=== PATIENT | male | born 1950 | race Caucasian/White ===

== ENCOUNTER 2016-11-30 20:19 | Emergency (ER) | payer OTHER, MEDICARE ==
[2016-11-30] MEDS ORDERED: ACETAMINOPHEN 500 MG TAB PO ONE (20:35)
[2016-11-30] MEDS ORDERED: NS 1,000 ML IV ONE (20:54)
[2016-11-30 21:13] LABS: % IMMATURE GRANULYOCYTES 0.3 % (0.0-1.1); ABSOLUTE IMMATURE GRANULOCYTES 0.02 10^3/uL (0.00-0.10); ADD DIFF? NO; ADD MORPH? NO; ADD SCAN? NO; ATYPICAL LYMPHOCYTE FLAG 0 (0-99); FRAGMENT RBC FLAG 0 (0-99); HEMATOCRIT 46.2 % (40.0-51.0); HEMOGLOBIN 16.2 g/dL (13.7-17.5); LEFT SHIFT FLG 0 (0-99); LIPEMIA HEMOLYSIS FLAG 90 (0-99); MEAN CELL HEMOGLOBIN 32.7 pg (27.9-34.1); MEAN CELL HEMOGLOBIN CONCENTR. 35.1 g/dL (32.4-36.7); MEAN CELL VOLUME 93.1 fL (81.5-99.8); MEAN PLATELET VOLUME 9.8 fL (8.7-11.7); PLATELET CLUMPS FLAG 0 (0-99); PLATELET COUNT 145 10^3/uL (150-400); RED BLOOD CELL COUNT 4.96 10^6/uL (4.40-6.38); RED CELL DISTRIBUTION WIDTH 13.2 % (11.5-15.2)
[2016-11-30 21:27] VITALS: RESP 16
[2016-11-30 21:28] LABS: INR 1.31 (0.83-1.16); PROTIME(PATIENT) 16.3 SEC (12.0-15.0)
[2016-11-30 21:29] LABS: APTT 33.7 SEC (23.0-38.0)
[2016-11-30 21:39] LABS: ALANINE AMINOTRANSFERASE 45 IU/L (21-72); ALBUMIN 3.9 g/dL (3.5-5.0); ALKALINE PHOSPHATASE 54 IU/L (38-126); ANION GAP 13 mEq/L (8-16); ASPARTATE AMINOTRANSFERASE 41 IU/L (17-59); BILIRUBIN,TOTAL 2.4 mg/dL (0.1-1.4); BILIRUBIN-CONJUGATED 0.3 mg/dL (0.0-0.5); BILIRUBIN-UNCONJUGATED 2.1 mg/dL (0.0-1.1); CARBON DIOXIDE 22 mEq/l (22-31); CHLORIDE 100 mEq/L (97-110); CREATININE 1.2 mg/dL (0.7-1.3); GLOMERULAR FILTRATION RATE > 60; GLUCOSE 110 mg/dL (70-100); POTASSIUM 3.9 mEq/L (3.5-5.2); SODIUM 135 mEq/L (134-144); TOTAL PROTEIN 6.9 g/dL (6.3-8.2)
--- NOTE | 2016-11-30 22:25 | EDPHY ---
H & P Stated Complaint: Fever, Cough, VO Time Seen by Provider: 11/30/16 22:00 HPI/ROS: HPI The patient presents with fever for the last 3 days getting progressively higher to the point today that it was 103 F. This is associated with diffuse myalgias which she feels mostly in his upper body. He has been taking ibuprofen with some improvement in his symptoms. He feels general malaise has and has dizziness upon sitting up. He has been able to tolerate fluids. He denies any cough, chest pain. He does have mild shortness of breath which she has attributed to the altitude. He does not have any abdominal pain, nausea or vomiting. He is visiting from [place] and drove here. Of note a few months ago he had a similar presentation while visiting [place] with fever for a few days with a negative workup. He does say that he had cold-type symptoms a few weeks ago.. REVIEW OF SYSTEMS Constitutional: No fever, no chills. Eyes: No discharge. ENT: No sore throat. Cardiovascular: No chest pain, no palpitations. Respiratory: No cough, no shortness of breath. Gastrointestinal: No abdominal pain, no vomiting. Genitourinary: No hematuria. Musculoskeletal: No back pain. Skin: No rashes. Neurological: No headache. PMHx: Hypertension, atrial fibrillation on Pradaxa, basal cell carcinoma, history of neuropathy Soc Hx: Visiting from [place] PHYSICAL General Appearance: Alert, no distress Eyes: Pupils equal and round no pallor or injection ENT, Mouth: Mucous membranes moist Respiratory: There are no retractions, lungs are clear to auscultation Cardiovascular: Regular rate and rhythm Gastrointestinal: Abdomen is soft and non-tender, no masses, bowel sounds normal Neurological: A&O, moves all extremities Skin: Warm and dry, no rashes Musculoskeletal: Neck is supple non tender Extremities: symmetrical, full range of motion Psychiatric: Patient is oriented X 3, there is no agitation Source: Patient Exam Limitations: No limitations - Personal History Current Tetanus Diphtheria and Acellular Pertussis (TDAP): Yes - Medical/Surgical History Hx Asthma: No Hx Chronic Respiratory Disease: No Hx Diabetes: No Hx Cardiac Disease: Yes Hx Renal Disease: No Hx Cirrhosis: No Hx Alcoholism: No Hx HIV/AIDS: No Hx Splenectomy or Spleen Trauma: No Other PMH: PNA, Basil Cell Carcinoma, High Cholesterol - Social History Smoking Status: Former smoker Constitutional: Initial Vital Signs Temperature (C) 39.5 C H 11/30/16 20:29 Heart Rate 84 11/30/16 20:29 Respiratory Rate 18 11/30/16 20:29 Blood Pressure 142/95 H 11/30/16 20:29 O2 Sat (%) 92 11/30/16 20:29 O2 Delivery Mode Room Air Allergies/Adverse Reactions: No Known Allergies Allergy (Unverified 11/30/16 20:27) Home Medications: Medication Instructions Recorded Atorvastatin Calcium [Lipitor 20 20 mg PO DAILY 11/30/16 mg (*)] Cholecalciferol Vit D3 [Vitamin D3 1,000 units PO DAILY 11/30/16 (*)] Dabigatran Etexilate Mesyl 150 mg PO DAILY 11/30/16 [Pradaxa 150 MG (*)] Esomeprazole Magnesium [Nexium 20 mg PO DAILY 11/30/16 24Hr] Ferrous Sulfate [Iron] 325 mg PO DAILY 11/30/16 Ibuprofen [Motrin (*)] 400 mg PO Q4H PRN 11/30/16 Multivitamins [Multivitamin (*)] 1 each PO DAILY 11/30/16 Nebivolol HCl [Bystolic 5 mg (*)] 5 mg PO DAILY 11/30/16 Medical Decision Making - Diagnostics Imaging Results: Imaging Impressions Chest X-Ray 11/30/16 20:55 Impression: Normal. Chest CT 11/30/16 23:04 Impression: No pulmonary emboli. Imaging: Discussed imaging studies w/ calliope player Radiologist, I viewed and interpreted images myself Differential Diagnosis: This is a 66-year-old male with hypertension and atrial fibrillation who presents with progressive fever with myalgias and malaise. No other symptoms. Differential diagnosis includes sepsis, influenza, pneumonia, urinary tract infection. In the emergency department, patient was given 2 L of IV fluid for his fever and presumed volume depletion. His fever was treated with antipyretics. Labs were checked and were relatively unremarkable except for elevated total bilirubin which I attribute to dehydration verses show bears. D-dimer was also elevated and because of this CT scan of the chest was performed and was unremarkable. He continued to feel well and would like to be discharged. His fever has defervesced. The cause of his fever is unclear, though he does not appear septic. Blood cultures have been sent. He is visiting from out of town I have instructed him that he needs to follow up with his primary care doctor when he returns home is a 2nd episode of fever with unclear cause in the last several months. - Data Points Laboratory Results: Laboratory Results 11/30/16 21:00 11/30/16 21:00 11/30/16 11/30/16 11/30/16 22:35 21:00 21:00 WBC 7.32 10^3/uL 10^3/uL (3.80-9.50) RBC 4.96 10^6/uL 10^6/uL (4.40-6.38) Hgb 16.2 g/dL g/dL (13.7-17.5) Hct 46.2 % % (40.0-51.0) MCV 93.1 fL fL (81.5-99.8) MCH 32.7 pg pg (27.9-34.1) MCHC 35.1 g/dL g/dL (32.4-36.7) RDW 13.2 % % (11.5-15.2) Plt Count 145 10^3/uL L 10^3/uL (150-400) MPV 9.8 fL fL (8.7-11.7) Neut % (Auto) 82.3 % H % (39.3-74.2) Lymph % (Auto) 7.9 % L % (15.0-45.0) [place] % (Auto) 9.0 % % (4.5-13.0) Eos % (Auto) 0.1 % L % (0.6-7.6) Baso % (Auto) 0.4 % % (0.3-1.7) Nucleat RBC Rel Count 0.0 % % (0.0-0.2) Absolute Neuts (auto) 6.02 10^3/uL 10^3/uL (1.70-6.50) Absolute Lymphs (auto) 0.58 10^3/uL L 10^3/uL (1.00-3.00) Absolute Monos (auto) 0.66 10^3/uL 10^3/uL (0.30-0.80) Absolute Eos (auto) 0.01 10^3/uL L 10^3/uL (0.03-0.40) Absolute Basos (auto) 0.03 10^3/uL 10^3/uL (0.02-0.10) Absolute Nucleated RBC 0.00 10^3/uL 10^3/uL (0-0.01) Immature Gran % 0.3 % % (0.0-1.1) Immature Gran # 0.02 10^3/uL 10^3/uL (0.00-0.10) PT INR APTT D-Dimer VBG Lactic Acid Sodium Potassium Chloride Carbon Dioxide Anion Gap BUN Creatinine Estimated GFR Glucose Calcium Total Bilirubin Conjugated Bilirubin Unconjugated Bilirubin AST ALT Alkaline Phosphatase Troponin I < 0.012 ng/mL ng/mL (0.000-0.034) Total Protein Albumin Urine Color YELLOW Urine Appearance CLEAR Urine pH 7.0 (5.0-7.5) Ur Specific [place] 1.017 (1.002-1.030) Urine Protein 2+ H (NEGATIVE) Urine Ketones TRACE H (NEGATIVE) Urine Blood NEGATIVE (NEGATIVE) Urine Nitrate NEGATIVE (NEGATIVE) Urine Bilirubin NEGATIVE (NEGATIVE) Urine Urobilinogen NEGATIVE EU EU (0.2-1.0) Ur Leukocyte Esterase NEGATIVE (NEGATIVE) Urine RBC 5-10 /hpf H /hpf (0-3) Urine WBC 1-3 /hpf /hpf (0-3) Ur Epithelial Cells NONE SEEN /lpf /lpf (NONE-1+) Urine Mucus TRACE /lpf /lpf (NONE-1+) Urine Glucose NEGATIVE (NEGATIVE) Influenza A & B (PCR) 11/30/16 11/30/16 11/30/16 21:00 21:00 21:00 WBC RBC Hgb Hct MCV MCH MCHC RDW Plt Count MPV Neut % (Auto) Lymph % (Auto) [place] % (Auto) Eos % (Auto) Baso % (Auto) Nucleat RBC Rel Count Absolute Neuts (auto) Absolute Lymphs (auto) Absolute Monos (auto) Absolute Eos (auto) Absolute Basos (auto) Absolute Nucleated RBC Immature Gran % Immature Gran # PT 16.3 SEC H SEC (12.0-15.0) INR 1.31 H (0.83-1.16) APTT 33.7 SEC SEC (23.0-38.0) D-Dimer 1.18 ug/mLFEU H ug/mLFEU (0.00-0.50) VBG Lactic Acid 1.4 mmol/L mmol/L (0.7-2.1) Sodium 135 mEq/L mEq/L (134-144) Potassium 3.9 mEq/L mEq/L (3.5-5.2) Chloride 100 mEq/L mEq/L (97-110) Carbon Dioxide 22 mEq/l mEq/l (22-31) Anion Gap 13 mEq/L mEq/L (8-16) BUN 16 mg/dL mg/dL (7-23) Creatinine 1.2 mg/dL mg/dL (0.7-1.3) Estimated GFR > 60 Glucose 110 mg/dL H mg/dL (70-100) Calcium 9.0 mg/dL mg/dL (8.5-10.4) Total Bilirubin 2.4 mg/dL H mg/dL (0.1-1.4) Conjugated Bilirubin 0.3 mg/dL mg/dL (0.0-0.5) Unconjugated Bilirubin 2.1 mg/dL H mg/dL (0.0-1.1) AST 41 IU/L IU/L (17-59) ALT 45 IU/L IU/L (21-72) Alkaline Phosphatase 54 IU/L IU/L (38-126) Troponin I Total Protein 6.9 g/dL g/dL (6.3-8.2) Albumin 3.9 g/dL g/dL (3.5-5.0) Urine Color Urine Appearance Urine pH Ur Specific [place] Urine Protein Urine Ketones Urine Blood Urine Nitrate Urine Bilirubin Urine Urobilinogen Ur Leukocyte Esterase Urine RBC Urine WBC Ur Epithelial Cells Urine Mucus Urine Glucose Influenza A & B (PCR) 11/30/16 20:55 WBC RBC Hgb Hct MCV MCH MCHC RDW Plt Count MPV Neut % (Auto) Lymph % (Auto) [place] % (Auto) Eos % (Auto) Baso % (Auto) Nucleat RBC Rel Count Absolute Neuts (auto) Absolute Lymphs (auto) Absolute Monos (auto) Absolute Eos (auto) Absolute Basos (auto) Absolute Nucleated RBC Immature Gran % Immature Gran # PT INR APTT D-Dimer VBG Lactic Acid Sodium Potassium Chloride Carbon Dioxide Anion Gap BUN Creatinine Estimated GFR Glucose Calcium Total Bilirubin Conjugated Bilirubin Unconjugated Bilirubin AST ALT Alkaline Phosphatase Troponin I Total Protein Albumin Urine Color Urine Appearance Urine pH Ur Specific [place] Urine Protein Urine Ketones Urine Blood Urine Nitrate Urine Bilirubin Urine Urobilinogen Ur Leukocyte Esterase Urine RBC Urine WBC Ur Epithelial Cells Urine Mucus Urine Glucose Influenza A & B (PCR) NEGATIVE FOR FLU (NEGATIVE) Medications Given: Discontinued Medications Acetaminophen (Tylenol) 1,000 mg PO EDNOW ONE Stop: 11/30/16 20:36 Last Admin: 11/30/16 20:40 Dose: 1,000 mg Sodium Chloride (Ns) 1,000 mls @ 0 mls/hr IV ONCE ONE; Wide Open PRN Reason: Protocol Stop: 11/30/16 20:55 Last Admin: 11/30/16 21:08 Dose: 1,000 mls Departure - Departure Disposition: Home, Routine, Self-Care Clinical Impression: Fever Qualifiers: Fever type: unspecified Qualified Code(s): R50.9 - Fever, unspecified Condition: Good Instructions: Fever in Adults (ED) Additional Instructions: Please return to the emergency room if your worse in any way. Referrals: BINA,ENAK [Other] - As per Instructions
[2016-11-30 22:48] LABS: COLOR YELLOW; LEUKOCYTE ESTERASE,URINE NEGATIVE (NEGATIVE); NITRITE,URINE NEGATIVE (NEGATIVE)
[2016-11-30 22:50] LABS: MUCUS TRACE /lpf (NONE-1+)
[2016-11-30] MEDS ORDERED: IOPAMIDOL (ISOVUE 370) 100 ML BTL IV ONE (23:11)
[2016-12-01 00:31] VITALS: BP 143/85; PULSE 82; TEMP 99.5; O2SAT 93
== END 2016-12-01 00:31 | disposition home or self-care (01) ==
DX: R50.9 Fever, unspecified (principal); I10 Essential (primary) hypertension; E86.9 Volume depletion, unspecified; Z87.891 Personal history of nicotine dependence
CPT/HCPCS: 71020; 71260; 96360; 99285; Q9967

== ENCOUNTER 2016-12-01 12:05 | Emergency (ER) | payer OTHER, MEDICARE ==
[2016-12-01 12:21] VITALS: TEMP 101.1
--- NOTE | 2016-12-01 13:45 | EDPHY ---
H & P Time Seen by Provider: 12/01/16 13:44 HPI/ROS: Chief complaint. Fever HPI. 66-year-old male presents with fever for the past 3-4 days. He is visiting from [place]. He was seen in the emergency department yesterday with normal workup. He had a normal chest x-ray, CT, urinalysis. He has no upper respiratory symptoms or cough. He says no abdominal pain vomiting or diarrhea but has slight muscle soreness to his abdomen but he says this is part of the rest of his muscle soreness with fever. No urinary symptoms. He had similar symptoms 2 months ago in [place] and after 2 visits to the emergency department there he was treated with what he says was a general antibiotic and symptoms went away. He had tick bites to [place] 2 months ago just before the onset of his episode of fever. Apparently he had negative Lyme and Engelhard spotted fever test at that time. He does have eczema and has a new rash on the dorsum of his right wrist but otherwise it is typical and does not seem to be infected. ROS Constitutional. Fever Eyes. no problems with vision ENT. no sore throat, no nasal drainage Cardiovascular. no chest pain Respiratory. no shortness of breath, no cough Abdominal. no abdominal pain, no nausea/vomiting, no diarrhea . no problems urinating MS. myalgias Skin. no rash Lymph. no swollen glands Neuro. no headache, no dizziness, no difficulty walking or with speech Past Medical/Surgical History: Past medical history is significant for pneumonia, basal cell carcinoma cover hypertension, AFib on Pradaxa, dyslipidemia Social History: , nonsmoker, no alcohol Smoking Status: Former smoker Physical Exam: General Appearance: Alert pleasant well-developed male mild distress vital signs are stable other than temp 38.4degrees Eyes: Pupils equal and round no pallor or injection. ENT, tympanic membranes are normal. Pharynx without injection Respiratory: There are no retractions, lungs are clear to auscultation. Cardiovascular: Regular rate and rhythm. Gastrointestinal: Abdomen is soft and nontender, no masses, bowel sounds normal. Apparent muscle wall tenderness. No focal areas of tenderness Neurological: Awake and alert, sensory and motor exams grossly normal. Skin: Warm and dry, no rashes. Eczema lesion on the dorsum of the right wrist without evidence for infection Musculoskeletal: Neck is supple nontender. Extremities symmetrical, full range of motion. Psychiatric: Patient is oriented X 3, there is no agitation. Constitutional: Initial Vital Signs Temperature (C) 38.4 C H 12/01/16 12:18 Heart Rate 85 12/01/16 12:18 Respiratory Rate 18 12/01/16 12:18 Blood Pressure 151/81 H 12/01/16 12:18 O2 Sat (%) 92 12/01/16 12:18 O2 Delivery Mode Room Air Allergies/Adverse Reactions: No Known Allergies Allergy (Unverified 11/30/16 20:27) Home Medications: Medication Instructions Recorded Atorvastatin Calcium [Lipitor 20 20 mg PO DAILY 11/30/16 mg (*)] Cholecalciferol Vit D3 [Vitamin D3 1,000 units PO DAILY 11/30/16 (*)] Dabigatran Etexilate Mesyl 150 mg PO DAILY 11/30/16 [Pradaxa 150 MG (*)] Esomeprazole Magnesium [Nexium 20 mg PO DAILY 11/30/16 24Hr] Ferrous Sulfate [Iron] 325 mg PO DAILY 11/30/16 Ibuprofen [Motrin (*)] 400 mg PO Q4H PRN 11/30/16 Multivitamins [Multivitamin (*)] 1 each PO DAILY 11/30/16 Nebivolol HCl [Bystolic 5 mg (*)] 5 mg PO DAILY 11/30/16 Doxycycline Hyclate 100 mg PO BID #14 tab 12/01/16 Medical Decision Making Procedures: Tylenol orally ED Course/Re-evaluation: I consulted and discussed the case with Dr. Bae, infectious disease, who recommends repeat CBC and West Nile virus cultures. She will see the patient in follow-up I discussed treatment plan with the patient. He expresses understanding and Differential Diagnosis: The patient does not appear ill or septic. Likely this is viral infection. Blood cultures so far are no growth. I considered Lyme disease other tick- borne illnesses, West Nile virus. - Data Points Medications Given: Discontinued Medications Acetaminophen (Tylenol) 1,000 mg PO EDNOW ONE Stop: 12/01/16 14:03 Last Admin: 12/01/16 14:15 Dose: 1,000 mg Departure - Departure Disposition: Home, Routine, Self-Care Clinical Impression: Fever Qualifiers: Fever type: unspecified Qualified Code(s): R50.9 - Fever, unspecified Condition: Good Instructions: Fever in Adults (ED) Additional Instructions: May use Tylenol 650-1000 mg every 4-6 hours, ibuprofen 600 mg every 6 hours as needed for fever. May alternate these medications every 3 hours. A return for worsening symptoms. Follow up with on Saturday here in [place] or your regular physician upon return to [place] Your iron supplement may may interfere with the absorption of the antibiotic. Please stop taking the iron supplement while taking the antibiotic Referrals: BOTI,UNKNOWN [Other] - As per Instructions Duke Bae MD [Medical Doctor] - As per Instructions Prescriptions: Doxycycline Hyclate 100 mg PO BID #14 tab
[2016-12-01] MEDS ORDERED: ACETAMINOPHEN 500 MG TAB PO ONE (14:02)
[2016-12-01 15:01] LABS: % IMMATURE GRANULYOCYTES 0.3 % (0.0-1.1); ABSOLUTE IMMATURE GRANULOCYTES 0.02 10^3/uL (0.00-0.10); ADD DIFF? NO; ADD MORPH? NO; ADD SCAN? NO; ATYPICAL LYMPHOCYTE FLAG 0 (0-99); FRAGMENT RBC FLAG 0 (0-99); HEMATOCRIT 44.7 % (40.0-51.0); HEMOGLOBIN 15.1 g/dL (13.7-17.5); LEFT SHIFT FLG 0 (0-99); LIPEMIA HEMOLYSIS FLAG 90 (0-99); MEAN CELL HEMOGLOBIN 32.1 pg (27.9-34.1); MEAN CELL HEMOGLOBIN CONCENTR. 33.8 g/dL (32.4-36.7); MEAN CELL VOLUME 95.1 fL (81.5-99.8); MEAN PLATELET VOLUME 9.7 fL (8.7-11.7); PLATELET CLUMPS FLAG 20 (0-99); PLATELET COUNT 122 10^3/uL (150-400); RED CELL DISTRIBUTION WIDTH 13.5 % (11.5-15.2)
[2016-12-01 15:30] VITALS: BP 146/89; PULSE 82; RESP 16; O2SAT 93
[2016-12-03 14:09] LABS: MALARIAL PREP NONE SEEN (NONE SEEN)
[2016-12-05 12:20] LABS: INTERPRETATION See Comments; WEST NILE VIRUS IGG Negative (Negative); WEST NILE VIRUS IGM Positive (Negative)
== END 2016-12-01 15:28 | disposition home or self-care (01) ==
DX: R50.9 Fever, unspecified (principal); I10 Essential (primary) hypertension; Z85.828 Personal history of other malignant neoplasm of skin; Z87.891 Personal history of nicotine dependence